=== PATIENT | female | born 1970 | race Caucasian/White ===

== ENCOUNTER → 2023-05-06 12:55 | Outpatient (BNVA) | payer BC, SELFPAY | PROVIDERS: Family Provider Nurse Practitioner Family; PCP Nurse Practitioner Family; Visit Provider Internal Medicine Pulmonary Disease | DX: J44.9 Chronic obstructive pulmonary disease, unspecified (principal); R06.09 Other forms of dyspnea; R06.02 Shortness of breath; F17.200 Nicotine dependence, unspecified, uncomplicated | CPT/HCPCS: 36415; 82785; 85025; 86003 ==

== ENCOUNTER 2023-05-20 09:05 | Outpatient (CLI) | payer BC, SELFPAY ==
--- NOTE | 2023-05-20 09:30 | USCV_ITS ---
Stephy Morrison Age: 53 Gender: F : 1970 Exam Date: 05/20/2023 09:34 Ordering Phys: John Horton MD Technologist: Piper Lane Exam Location: [facility] [place] Indication: COPD, SOB BP: 122 / 78 HR: 89 Rhythm: Sinus Technical Quality: Good MEASUREMENTS (Male / Female) Normal Values 2D ECHO LV Diastolic Diameter PLAX 3.9 cm 4.2 - 5.9 / 3.9 - 5.3 cm LV Systolic Diameter PLAX 2.5 cm IVS Diastolic Thickness 1.1 cm 0.6 - 1.0 / 0.6 - 0.9 cm IVS Systolic Thickness 1.5 cm LVPW Diastolic Thickness 1.0 cm 0.6 - 1.0 / 0.6 - 0.9 cm LVPW Systolic Thickness 1.7 cm LVOT Diameter 2.0 cm LV Ejection Fraction 2D Teich 64.6 % LV Ejection Fraction MOD 2C 60.0 % LV Ejection Fraction 2C AL 61.5 % LA Diameter 2.1 cm LA Width 2.7 cm LA Height 4.5 cm RA Width 2.6 cm RA Height 4.0 cm Aorta at Sinotubular Diameter 2.6 cm IVC Diameter 1.5 cm M-MODE MV E Point Septal Separation 0.4 cm DOPPLER AV Peak Velocity 124.0 cm/s LVOT Peak Velocity 108.0 cm/s AV Area Cont Eq vti 2.6 cm squared AV Area Cont Eq pk 2.8 cm squared MV Peak Velocity 108.0 cm/s MV Area PHT 3.9 cm squared Mitral E to A Ratio 1.1 MV E' Velocity 50.0 cm/s Mitral E to MV E' Ratio 7.9 Mitral E to LV E' Lateral Ratio 8.2 Mitral E to LV E' Septal Ratio 7.7 TR Peak Velocity 81.0 cm/s TR Peak Gradient 2.6 mmHg Right Atrial Pressure 5.0 mmHg Pulmonary Artery Systolic Pressu 7.6 mmHg PV Peak Velocity 100.0 cm/s RV Acceleration Time 0.1 s RV Ejection Time 0.3 s RV AcT/ET 0.4 FINDINGS Left Ventricle Normal left ventricular size, systolic function and wall thickness, with no regional wall motion abnormalities. Left ventricular ejection fraction is estimated at 65 %. Normal diastolic function. Right Ventricle Normal right ventricular size and systolic function. RVSP could not be calculated due to incomplete tricuspid regurgitation velocity profile. Right Atrium Normal right atrial size. Left Atrium Normal left atrial size. Mitral Valve Structurally normal mitral valve. No mitral valve stenosis. Trace mitral valve regurgitation. Aortic Valve Structurally normal trileaflet aortic valve. No aortic valve stenosis. No aortic valve regurgitation. Tricuspid Valve Structurally normal tricuspid valve. No tricuspid valve stenosis. Trace tricuspid valve regurgitation. Pulmonic Valve Structurally normal pulmonic valve. No pulmonary valve stenosis. No pulmonary valve regurgitation. Pericardium No pericardial effusion. Aorta Normal size aortic root and proximal ascending aorta. IVC Normal IVC dimension with >50% respiratory change of the inferior vena cava. CONCLUSIONS 1. Normal left ventricular size, systolic function and wall thickness, with no regional wall motion abnormalities. Left ventricular ejection fraction is estimated at 65 %. Normal diastolic function. 2. No Prior similar studies to compare. Kerri Thakkar MD (Electronically Signed) Final Date: 20 May 2023 15:02 S
== END 2023-05-20 09:06 | disposition home or self-care (01) ==
PROVIDERS: Family Provider Nurse Practitioner Family; PCP Nurse Practitioner Family; Visit Provider Internal Medicine Pulmonary Disease
DX: R06.02 Shortness of breath (principal); R06.09 Other forms of dyspnea
CPT/HCPCS: 93306

== ENCOUNTER 2023-05-26 06:49 | Outpatient (CLI) | payer BC, SELFPAY ==
[2023-05-26 07:15] VITALS: BP 133/81
[2023-05-26 07:35] VITALS: PULSE 99; RESP 20; O2SAT 94
[2023-05-26] MEDS: albuterol 2.5 mg/3 mL Neb INHALATION (07:35)
[2023-05-26 07:40] VITALS: PULSE 95
== END 2023-05-26 06:50 | disposition home or self-care (01) ==
PROVIDERS: PCP Nurse Practitioner Family; Visit Provider Internal Medicine Pulmonary Disease
DX: J44.9 Chronic obstructive pulmonary disease, unspecified (principal); Z87.891 Personal history of nicotine dependence; R94.2 Abnormal results of pulmonary function studies
CPT/HCPCS: 94060; 94618; 94729; J7613

== ENCOUNTER 2023-06-16 07:29 | Outpatient (CLI) | payer BC, SELFPAY ==
--- NOTE | 2023-06-16 07:43 | CT_ITS ---
WS: [id number] LDCT LUNG CANCER SCREENING HISTORY: LUNG CANCER SCREENING TECHNIQUE: Axial imaging performed from the apices to 1 cm below the costophrenic angles. Coronal and sagittal reformats are submitted with axial MIP series. All CT scans at [facility] use at least one of these dose optimization techniques: automated exposure control; mA and/or kV adjustment per patient size (includes targeted exams where dose is matched to clinical indication); or iterativ e reconstruction. DLP: 73.30 mGy.cm DIvol: Mean CTDIvol: 1.50 (mGy) COMPARISON: None available. Diagnostic quality: Satisfactory Lungs: Bilateral scattered areas of groundglass attenuation. More focal areas of groundglass attenuat ion at the lung bases. None of these areas measure greater than 3 cm in diameter. No pulmonary mass o r nodule. Paraseptal emphysema. There is also bronchial wall thickening and early changes of bronchie ctasis in the anterior RIGHT upper lobe. Small cluster of 3 to 4 mm nodules in the superior segment R IGHT lower lobe, image 131 of series 4. No endobronchial lesions. Heart: Normal size heart with no pericardial effusion.. Other findings: Small mediastinal and hilar lymph nodes. Pulmonary artery is mildly enlarged. IMPRESSION: CT/CT lung screening [id number] LUNG-RADS: 3-Probably Benign FOLLOW UP: 6 Month LDCT OTHER FINDINGS (S MODIFIER): None.
== END 2023-06-16 07:30 | disposition home or self-care (01) ==
PROVIDERS: PCP Nurse Practitioner Family; Visit Provider Internal Medicine Pulmonary Disease
DX: Z12.2 Encounter for screening for malignant neoplasm of respiratory organs (principal); F17.210 Nicotine dependence, cigarettes, uncomplicated
CPT/HCPCS: 71271

== ENCOUNTER → 2023-07-12 14:15 | Outpatient (BNVA) | payer BC, SELFPAY | PROVIDERS: PCP Nurse Practitioner Family; Visit Provider Internal Medicine Pulmonary Disease | DX: J22 Unspecified acute lower respiratory infection (principal) | CPT/HCPCS: 71046 ==

== ENCOUNTER 2023-07-13 08:15 | Outpatient (CLI) | payer BC, SELFPAY ==
--- NOTE | 2023-07-13 08:20 | MR_ITS ---
WS: [id number] MRI LEFT KNEE NONCONTRAST TECHNIQUE: Axial PD, coronal PD fat sat, coronal PD, sagittal PD, and sagittal PD fat-sat images obta ined. CLINICAL INFORMATION: KNEE PAIN COMPARISON: None. FINDINGS: Distal quadriceps and patellar tendons are intact. Hypertrophic patella. Normal ACL and PCL. Prepatel lar soft tissue edema. 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 Norm al popliteal fossa. Medial and lateral collateral ligaments appear intact. Small amount of increased signal at the LCL or igin and popliteus origin. Small amount of edema in the lateral femoral condyle likely due to contusi on. Chronic thinning of the medial and lateral meniscus. No acute appearing meniscal tears. Fibula he ad appears normal. IMPRESSION: 1. Normal ACL and PCL. 2. Mild tricompartmental arthritis. 3. Mild chronic thinning of the medial and lateral meniscus. No acute appearing meniscal tears. 4. Small amount of edema in the lateral femoral condyle likely due to contusion 5. Small amount of signal abnormality at the LCL origin and popliteus which appear intact. Recommend correlation for posterolateral corner injury. 6. Normal medial collateral ligament. 7. Mild chondromalacia patella. Hypertrophic patella. Outbridge grading: grade II: blister-like swelling/fraying of articular cartilage extending to surfac e
== END 2023-07-13 08:16 | disposition home or self-care (01) ==
PROVIDERS: PCP Nurse Practitioner Family; Visit Provider Psychiatry & Neurology Neurology
DX: M17.12 Unilateral primary osteoarthritis, left knee (principal); M22.42 Chondromalacia patellae, left knee
CPT/HCPCS: 73721

== ENCOUNTER 2023-07-28 20:00 | Outpatient (CLI) | payer BC, SELFPAY | END 2023-07-28 20:01 | disposition home or self-care (01) | LOC: SLEEP 07-29 04:41 | PROVIDERS: PCP Nurse Practitioner Family; Visit Provider Internal Medicine Pulmonary Disease | DX: J44.9 Chronic obstructive pulmonary disease, unspecified (principal); G47.36 Sleep related hypoventilation in conditions classified elsewhere; R06.83 Snoring; R53.83 Other fatigue | CPT/HCPCS: 95810 ==

== ENCOUNTER 2023-10-14 11:16 | Outpatient (CLI) | payer BC, SELFPAY ==
--- NOTE | 2023-10-14 11:24 | MR_ITS ---
WS: [id number] MRI LUMBAR SPINE NONCONTRAST TECHNIQUE: Sagittal T1, T2 and STIR imaging. Axial T1 and T2 imaging. CLINICAL INFORMATION: L LEG PAIN/LEG WEAKNESS/LUMBAGO W/L SIDE SCIATICA COMPARISON: None. FINDINGS: Mild lumbar curve. No acute compression. Disc bulging worse at L4-L5 and L5-S1. Small central disc pr otrusions in the thoracic spine at T6-T7 and T7-T8 with slight contact of the thoracic cord. L1-L2: Normal. L2-L3: Shallow RIGHT subarticular protrusion with slight impingement traversing RIGHT L3 nerve root. Mild to moderate RIGHT foraminal narrowing with impingement on the exiting RIGHT L2 nerve root L3-L4: Mild annular bulging with slight narrowing of the RIGHT subarticular recess. Mild RIGHT forami nal narrowing. L4-L5: Mild annular bulging with broad-based central protrusion. Slight impingement traversing L5 ner ve roots bilaterally. Small LEFT annular fissure. Mild bilateral foraminal narrowing with small fabian inal protrusions. Mild facet arthropathy. L5-S1: Shallow LEFT paracentral protrusion with slight impingement LEFT greater than RIGHT traversing S1 nerve roots. Small annular fissure. Spinal canal and foramen are patent. Mild facet arthropathy. Visualized pelvic bony structures: Normal. Paravertebral soft tissues: Normal. IMPRESSION: 1. Mild disc bulging L5-S1 with a small LEFT paracentral protrusion and annular fissure. Slight encr oachment on the traversing S1 nerve roots bilaterally. 2. Mild annular bulging L4-5 with slight effacement of the ventral thecal sac. Impingement traversin g L5 nerve roots bilaterally. Mild facet arthropathy. 3. Small bilateral foraminal protrusions L4-5 with mild bilateral foraminal narrowing. LEFT eccentri c annular fissure. 4. RIGHT subarticular protrusion L2-3 impinges the traversing RIGHT L3 nerve root. This extends into the RIGHT neural foramen with mild to moderate RIGHT foraminal narrowing 5. Small central disc protrusions in the thoracic spine at T6-T7 and T7-T8 slight contact of the tho racic cord.
== END 2023-10-14 11:17 | disposition home or self-care (01) ==
LOC: RAD 11:17
PROVIDERS: PCP Nurse Practitioner Family; Visit Provider Nurse Practitioner Family
DX: M51.17 Intervertebral disc disorders with radiculopathy, lumbosacral region (principal); M47.26 Other spondylosis with radiculopathy, lumbar region; M48.061 Spinal stenosis, lumbar region without neurogenic claudication; M79.605 Pain in left leg; M62.81 Muscle weakness (generalized); M21.372 Foot drop, left foot; M51.24 Other intervertebral disc displacement, thoracic region
CPT/HCPCS: 72148

== ENCOUNTER 2024-04-19 08:49 | Outpatient (CLI) | payer BC, SELFPAY ==
--- NOTE | 2024-04-19 09:00 | CT_ITS ---
WS: [id number] CT chest wo con [id number] REASON FOR EXAM: follow up lung nodules IV CONTRAST ADMINISTERED: None. TOTAL EXAM DLP: 349.[address] scans at [facility] use at least one of these dose optimization techniques: automat ed exposure control; mA and/or kV adjustment per patient size (includes targeted exams where dose is matched to clinical indication); or iterative reconstruction. FINDINGS: Comparison examination 06/16/[address] scan of the chest was not done with the same technique, 5 mm thick slices at this time and 2 mm th ick slices on the previous exam. Small and subtle abnormalities in the pulmonary parenchyma will not be as well demonstrated. The areas of patchy and focal groundglass density noted on the previous examination are not as well-d emonstrated as on the previous examination but do not appear to have changed significantly. The area of bronchiectasis is not as well demonstrated on this examination as on the previous study b ut does not appear to have changed significantly. The lung nodule seen on the previous examination in the superior segment of the right upper lobe are unchanged. The previously described lymph nodes in the mediastinum and hilar regions are unchanged. No lung nodule greater than [address]/CT chest wo con [id number] IMPRESSION: No interval change compared to the previous CT scan. LUNG-RADS: Category 1 benign annual follow-up to be done with 2 mm thick sectio ns.
== END 2024-04-19 08:50 | disposition home or self-care (01) ==
LOC: RAD 08:49
PROVIDERS: PCP Nurse Practitioner Family; Visit Provider Internal Medicine Pulmonary Disease
DX: R91.8 Other nonspecific abnormal finding of lung field (principal); J47.9 Bronchiectasis, uncomplicated
CPT/HCPCS: 71250

== ENCOUNTER 2024-06-09 12:31 | Outpatient (CLI) | payer BC, SELFPAY ==
--- NOTE | 2024-06-09 12:40 | MR_ITS ---
WS: [id number] MRI OF THE ABDOMEN WITHOUT AND WITH GADOLINIUM ENHANCEMENT TECHNIQUE: Coronal T2 Fase BH, Axial T2 Fase BH, Axial T2 FS BH, Zxial 3D Raman BH, Axial DWI BH, 2D MRCP Radial BH, 3D MRCP (Resp), and Axial 3D Dyn BH Post sequences. CLINICAL INFORMATION: RUQ PAIN/ELEVATED LIVER ENZYMES/ABN CT OF LIVER COMPARISON: No available recent comparison images of the liver. No other history provided. FINDINGS: Gallbladder is not visualized likely due to prior cholecystectomy although the patient's intake form indicates no prior surgery.Presumed cholecystectomy. Recommend correlation with clinical history. Mild hepatomegaly measuring 18.5 cm craniocaudal. No significant fatty infiltration. Normal portal ve in and splenic vein. Pancreas is normal in appearance. No visualized pancreatic head mass. Common lance e duct appears normal. Normal pancreatic duct. Tiny esophageal hiatal hernia. Adrenal glands are norm al. No hydronephrosis in either kidney. Normal caliber abdominal aorta. Celiac and SMA are patent. Renal arteries are patent. Normal renal pa renchymal enhancement. No focal enhancing lesions in the liver. No abnormal foci of enhancement on th e 5-minute delayed images. MR/MR abdomen wo/w con* [id number] Impression: 1. Gallbladder is not visualized presumably due to prior cholecystectomy. 2. Mild hepatomegaly. No abnormal enhancing liver lesions. 3. Normal common bile duct. 4. Pancreas appears normal. 5. No hydronephrosis in either kidney. 6. No other suspicious findings.
[2024-06-09] MEDS: gadobenate dimeglumine 20 mL vial 14 ML IV (13:33)
== END 2024-06-09 12:32 | disposition home or self-care (01) ==
LOC: RAD 12:33
PROVIDERS: PCP Nurse Practitioner Family; Visit Provider Nurse Practitioner Family
DX: R10.11 Right upper quadrant pain (principal); R74.8 Abnormal levels of other serum enzymes; R93.2 Abnormal findings on diagnostic imaging of liver and biliary tract; R16.0 Hepatomegaly, not elsewhere classified
CPT/HCPCS: 74183; A9577

== ENCOUNTER 2025-01-08 11:28 | Outpatient (CLI) | payer BC, SELFPAY ==
--- NOTE | 2025-01-08 11:32 | MM_ITS ---
WS: [email or web address] BILATERAL 3D TOMOSYNTHESIS DIGITAL SCREENING MAMMOGRAPHY WITH CAD CLINICAL INFORMATION: SCREEN HISTORY: Screening mammogram. No current complaints. COMPARISON: Baseline TECHNIQUE: Bilateral CC and MLO views. FINDINGS: Scattered fibroglandular densities bilaterally. Dystrophic calcifications outer RIGHT breast. Incidental calcifications LEFT breast. Lobulated nodule upper outer RIGHT breast likely represents a lymph node but technically indeterminate measuring 7 mm. No prior comparisons. Recommend further evaluation with ultrasound. Unremarkable LEFT breast. MM/MM [facility] tomosynthesis [id number] IMPRESSION: DENSITY: There are scattered areas of fibroglandular density. BI-RADS: 0 - Incomplete: Need additional imaging evaluation. FOLLOW UP: Need Additional Imaging Recommend RIGHT breast ultrasound of the outer RIGHT breast nodule
== END 2025-01-08 11:29 | disposition home or self-care (01) ==
LOC: RAD 11:30
PROVIDERS: PCP Nurse Practitioner Family; Visit Provider Nurse Practitioner Family
DX: Z12.31 Encounter for screening mammogram for malignant neoplasm of breast (principal); R92.323 Mammographic fibroglandular density, bilateral breasts; R92.1 Mammographic calcification found on diagnostic imaging of breast; N63.11 Unspecified lump in the right breast, upper outer quadrant
CPT/HCPCS: 77063; 77067

== ENCOUNTER 2025-02-05 13:29 | Outpatient (CLI) | payer BC, SELFPAY ==
--- NOTE | 2025-02-05 13:41 | US_ITS ---
WS: [email or web address] ULTRASOUND BREAST RIGHT TECHNIQUE: Ultrasound right breast focused area of concern. CLINICAL INFORMATION: ABNORMAL MAMMOGRAM COMPARISON: Mammogram 01/08/2025 FINDINGS: Ultrasound RIGHT breast at the 9 o'clock position demonstrates an incidental lymph node in the area of concern measuring 5 x 4 x 8 mm. This has a benign appearance. Recommend return to annual screening mammography. US/US breast RT limited* [id number] IMPRESSION: BI-RADS 2 benign Recommend return to annual screening mammography
== END 2025-02-05 13:30 | disposition home or self-care (01) ==
LOC: RAD 13:31
PROVIDERS: PCP Nurse Practitioner Family; Visit Provider Nurse Practitioner Family
DX: R92.8 Other abnormal and inconclusive findings on diagnostic imaging of breast (principal); R59.0 Localized enlarged lymph nodes
CPT/HCPCS: 76642

== ENCOUNTER → 2025-08-02 13:07 | Outpatient (BNVA) | payer MEDICARE, SELFPAY | PROVIDERS: PCP Nurse Practitioner Family; Referring Provider Nurse Practitioner Family; Visit Provider Internal Medicine Cardiovascular Disease | DX: R07.9 Chest pain, unspecified (principal); R94.31 Abnormal electrocardiogram [ECG] [EKG] | CPT/HCPCS: 93005 ==

== ENCOUNTER → 2025-08-13 14:10 | Outpatient (BNVA) | payer MEDICARE, SELFPAY | PROVIDERS: PCP Nurse Practitioner Family; Referring Provider Nurse Practitioner Family; Visit Provider Anesthesiology Pain Medicine | DX: M54.9 Dorsalgia, unspecified (principal) | CPT/HCPCS: 99204 ==

== ENCOUNTER 2025-08-15 13:56 | Outpatient (CLI) | payer MEDICARE, SELFPAY ==
--- NOTE | 2025-08-15 14:05 | MRR_ITS ---
PROCEDURE INFORMATION: Exam: MR Lumbar Spine Without and With Contrast Exam date and time: 08/15/2025 2:31 PM Age: 55 years old Clinical indication: Pain; Lumbago with sciatica; Prior surgery; Surgery date: 6+ months; Surgery type: C-spine/l-spine; Lbp that radiates down the right leg/unsteady gait; Additional info: Lumbago w/sciatica, R side TECHNIQUE: Imaging protocol: Magnetic resonance imaging of the lumbar spine without and with contrast. Contrast material: MULTIHANCE; Contrast volume: 15 ml; Contrast route: INTRAVENOUS (IV); COMPARISON: MR lumbar spine wo con* [id number] 10/14/2023 11:37 AM FINDINGS: Bones/joints: The spine is imaged from T11 through S3. There is an acute to subacute probable pathologic burst fracture of L5, new from the prior abdominal MRI dated 06/09/2024. There is diffuse increased T2 and STIR signal intensity and decreased T1 signal intensity within the L5 vertebral body as well as slight retropulsion of the posterior vertebral body margin. Mild edema is identified in the adjacent L4-L5 and L5-S1 disc spaces suggesting the findings are relatively acute. AP alignment and curvature are otherwise unremarkable. An L5 laminectomy has been performed and appears to have been present on the prior abdomen MRI. It is new as compared to the 10/14/2023 lumbar spine MRI. No paraspinal phlegmon is identified to suggest that this represents osteomyelitis. There is a new focus of circumscribed decreased T1 and increased T2 signal intensity within the L1 vertebral body centrum. No additional bone lesions are identified with sagittal screening evaluation of the cervical and thoracic spine showing prior C5-C6 anterior discectomy and fusion the no additional bone lesions. Spinal cord: Visualized cord, conus medullaris and cauda equina are T11-12 through T12-L1 through L1-L2: These levels are unchanged as compared to the 2022 examination and are without significant degenerative change. L2-L3: Disc height is normal. There is mild disc desiccation and a shallow right posterolateral disc bulge, having slightly increased in size from the prior study. No subarticular root impingement is seen. There is mild stable facet arthropathy without foraminal stenosis. L3-L4: Disc height is near normal. There is disc desiccation and a trace disc bulge, unchanged from the prior study and without evidence of neural impingement. Mild facet and ligament hypertrophy and a small right facet joint effusion are present, similar to the prior study. The neural foramina remain patent. L4-L5: Slight disc space narrowing is apparent. There is a shallow disc bulge accentuated due to the plastic deformation of the L5 posterior vertebral body margin this results in right L5 subarticular root impingement or mild entrapment inferior to the disc space. Mild facet arthropathy and small facet joint effusions are present. The neural foramina remain patent. Prior bilateral medial facetectomies are apparent. L5-S1: Disc height is near normal. Previously seen annular fissure has resolved. A left paracentral disc bulge is evident, similar to the prior examination. No neural impingement is evident. Bilateral medial facetectomies at this level have also been performed. Soft tissues: The paraspinal soft tissues are unremarkable to the extent visible. MR/MR lumbar spine wo/w con [id number] IMPRESSION: 1. 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 2. Potential 2nd metastatic focus, newly identified within the L1 vertebral body, having not been present on the 2022 exam. 3. Prior L5 laminectomy with partial bilateral L4-L5 and bilateral L5-S1 medial facetectomies.
[2025-08-15] MEDS: gadobenate dimeglumine 20 mL vial IV (15:02)
== END 2025-08-15 13:57 | disposition home or self-care (01) ==
LOC: RAD 13:57
PROVIDERS: PCP Nurse Practitioner Family; Visit Provider Nurse Practitioner Family
DX: M54.41 Lumbago with sciatica, right side (principal); Z98.890 Other specified postprocedural states; R60.0 Localized edema; M51.369 Other intervertebral disc degeneration, lumbar region without mention of lumbar back pain or lower extremity pain; M47.896 Other spondylosis, lumbar region; M24.28 Disorder of ligament, vertebrae; M25.48 Effusion, other site; M51.379 Other intervertebral disc degeneration, lumbosacral region without mention of lumbar back pain or lower extremity pain; M47.897 Other spondylosis, lumbosacral region
CPT/HCPCS: 72158